=== PATIENT | female | born 1970 | race American Indian/Alaskan Native ===

== ENCOUNTER 2018-12-09 09:32 | Emergency (ER) | payer MEDICARE ==
[2018-12-09 10:44] LABS: Bacteria,Urine 1+ /HPF (Negative); Bilirubin,Urine NEG (Negative); Blood,Urine MOD (Negative); Color,Urine Yellow (Yellow); Mucus,Urine FEW /HPF; Protein,Urine <15 mg/dL mg/dL (Negative); Urobilinogen,Urine < 2.0 mg/dL (<2.0)
[2018-12-09] MEDS ORDERED: NACL 0.9% 1000 ML 1,000 ML IV ONE (11:46)
[2018-12-09] MEDS ORDERED: ZOFRAN IV ONE (11:47)
[2018-12-09 12:00] LABS: Basophils % (Auto) 0.7 % (0.0-1.8); Eosinophils # (Auto) 0.1 K/mm3 (0.0-0.4); Hematocrit 37.5 % (30.3-42.9); Hemoglobin 12.7 gm/dl (10.1-14.3); Lymphocytes # (Auto) 1.6 K/mm3 (1.2-5.4); Lymphocytes % (Auto) 22.4 % (13.4-35.0); Mean Corpuscular HGB Conc 34 % (30-34); Mean Corpuscular Volume 90 fl (79-97); Monocytes # (Auto) 0.5 K/mm3 (0.0-0.8); Monocytes % (Auto) 6.3 % (0.0-7.3); Platelet Count 167 K/mm3 (140-440); Red Blood Count 4.17 M/mm3 (3.65-5.03)
[2018-12-09 12:59] LABS: Alanine Aminotransferase 10 units/L (7-56); Albumin 4.3 g/dL (3.9-5); BUN/Creatinine Ratio 24; Blood Urea Nitrogen 12 mg/dL (7-17); Calcium 9.7 mg/dL (8.4-10.2); Hemolysis Index 3
[2018-12-09] MEDS ORDERED: IMODIUM A-D PO ONE (13:00)
--- NOTE | 2018-12-09 13:37 | Emergency Department Report ---
ED N/V/D HPI - General Chief complaint: Nausea/Vomiting/Diarrhea Stated complaint: CRAMPING/BACK PAIN/DIARRHEA Time Seen by Provider: 12/09/18 10:06 Source: patient Mode of arrival: Ambulatory Limitations: No Limitations - History of Present Illness Initial comments: patient c/o n/v/d x 2 days. sister with similar symptoms. denies any recent travel. no fever, no blood in stool. MD complaint: nausea, vomiting, diarrhea -: Gradual, days(s) Description of Vomiting: food contents Description of Diarrhea: mucous Associated Abdominal Pain: No - Related Data Previous Rx's Medication Instructions Recorded Last Taken Type Promethazine [Phenergan] 25 mg PO Q6HR PRN #15 tab 12/09/18 Unknown Rx cephALEXin [Keflex] 500 mg PO Q12HR #14 cap 12/09/18 Unknown Rx Allergies Allergy/AdvReac Type Severity Reaction Status Date / Time No Known Allergies Allergy Verified 12/09/18 09:34 ED Review of Systems ROS: Stated complaint: CRAMPING/BACK PAIN/DIARRHEA Other details as noted in HPI Comment: All other systems reviewed and negative Respiratory: denies: cough Cardiovascular: denies: chest pain Endocrine: denies: flushing Gastrointestinal: nausea, vomiting, diarrhea ED Past Medical Hx - Past Medical History Additional medical history: emphysema, cervical CA, liver infection - Surgical History Additional Surgical History: cyst removal from chest cavity - Social History Smoking Status: Never Smoker Substance Use Type: None - Medications Home Medications: Home Medications Medication Instructions Recorded Confirmed Last Taken Type Promethazine [Phenergan] 25 mg PO Q6HR PRN #15 tab 12/09/18 Unknown Rx cephALEXin [Keflex] 500 mg PO Q12HR #14 cap 12/09/18 Unknown Rx ED Physical Exam - General Limitations: No Limitations General appearance: alert, in no apparent distress - Head Head exam: Present: atraumatic, normocephalic - Eye Eye exam: Present: normal appearance, PERRL, EOMI Pupils: Present: normal accommodation - ENT ENT exam: Present: normal exam, normal orophraynx - Neck Neck exam: Present: normal inspection - Respiratory Respiratory exam: Present: normal lung sounds bilaterally - Cardiovascular Cardiovascular Exam: Present: regular rate, normal rhythm - GI/Abdominal GI/Abdominal exam: Present: soft - Extremities Exam Extremities exam: Present: normal inspection ED Course Vital Signs 12/09/18 12/09/18 09:42 12:19 Temperature 97.9 F Pulse Rate 66 Respiratory 15 18 Rate Blood Pressure 127/80 [Left] O2 Sat by Pulse 100 97 Oximetry ED Medical Decision Making - Lab Data Result diagrams: 12/09/18 11:50 12/09/18 11:50 Critical care attestation.: If time is entered above; I have spent that time in minutes in the direct care of this critically ill patient, excluding procedure time. ED Disposition Clinical Impression: Gastroenteritis UTI (urinary tract infection) Qualifiers: Urinary tract infection type: acute cystitis Hematuria presence: without hematuria Qualified Code(s): N30.00 - Acute cystitis without hematuria Disposition: DC-01 TO HOME OR SELFCARE Is pt being admited?: No Does the pt Need Aspirin: No Condition: Stable Referrals: GALINA WILSON MD [Primary Care Provider] - 3-5 Days
[2018-12-09 13:46] LABS: HCG Qualitative,Urine Negative (Negative)
[2018-12-09 14:34] VITALS: BP 112/76
== END 2018-12-09 14:22 | disposition home or self-care (01) ==
LOC: ED 09:32
DX: K52.9 Noninfective gastroenteritis and colitis, unspecified (principal); N39.0 Urinary tract infection, site not specified; Z79.899 Other long term (current) drug therapy
CPT/HCPCS: 36415; 80053; 81001; 81025; 85025; 96361; 96374; 99283; J2405; J7030